=== PATIENT | female | born 1955 | race Caucasian/White ===

== ENCOUNTER → 2020-08-14 | Day surgery (SDC) | payer OTHER ==
[~2020-08-14] MED LIST: ASPIRIN81 MG PO; CITRACAL + D E1 EACH PO; NORCO 5-325 TA1 EACH PO; PRILOSEC20 MG PO; TOPROL XL 25MG25 MG PO; VIT C-ROSE HIP500 MG PO; WELLBUTRIN XL150 MG PO
[2020-08-14 15:43] LABS: BUN/CREAT RATIO (CALC) 25.9 RATIO; CREATININE 0.81 mg/dL (0.51-0.95); POTASSIUM 4.2 mmol/L (3.5-5.1)
== END | disposition home or self-care (01) ==
LOC: FAS 08:32
PROVIDERS: Anesthesiology
DX: M65.331 Trigger finger, right middle finger (principal); G43.909 Migraine, unspecified, not intractable, without status migrainosus; K22.70 Barrett's esophagus without dysplasia; K21.9 Gastro-esophageal reflux disease without esophagitis; I25.2 Old myocardial infarction; Z87.891 Personal history of nicotine dependence
CPT/HCPCS: 36415; 80048; J0690; J1100; J2250; J2405; J2704; J2795; J3010; J7120